=== PATIENT | female | born 1955 | race Caucasian/White ===

== ENCOUNTER → 2024-04-08 10:06 | Outpatient (REF) | payer MEDICARE, SELFPAY | LOC: RAD 10:06 | PROVIDERS: ATTENDING PHYSICIAN Family Medicine | DX: M51.361 Other intervertebral disc degeneration, lumbar region with lower extremity pain only (principal); M79.2 Neuralgia and neuritis, unspecified; I83.893 Varicose veins of bilateral lower extremities with other complications | CPT/HCPCS: 72110 ==

== ENCOUNTER → 2024-05-22 07:20 | Outpatient (REF) | payer MEDICARE, SELFPAY | LOC: RAD 07:20 | PROVIDERS: ATTENDING PHYSICIAN Family Medicine | DX: I83.893 Varicose veins of bilateral lower extremities with other complications (principal) | CPT/HCPCS: 93970 ==

== ENCOUNTER → 2024-07-07 16:10 | Outpatient (REF) | payer MEDICARE, SELFPAY | LOC: RAD 16:10 | PROVIDERS: ATTENDING PHYSICIAN Family Medicine | DX: M54.50 Low back pain, unspecified (principal); W19.XXXA Unspecified fall, initial encounter | CPT/HCPCS: 72110 ==